=== PATIENT | female | born 1950 | race Caucasian/White ===

== ENCOUNTER 2016-11-02 12:04 | Day surgery (SDC) | payer OTHER ==
[~2016-11-02] VITALS: Ht 165.1 cm; Wt 86.4 kg
[2016-11-02 13:33] LABS: BASOPHILS 0.2 % (0.0-2.0); EOSINOPHILS 1.4 % (0-7); HEMATOCRIT 40.5 % (36.0-48.0); HEMOGLOBIN 13.1 g/dL (12-16); IMMATURE GRANULOCYTES 0.2 % (0-5); LYMPHOCYTES 20.8 % (15-50); MCH 30.8 pg (26.0-34.0); MCHC 32.3 g/dL (31.0-37.0); MCV 95.1 fL (80.0-100.0); MEAN PLATELET VOLUME 9.7 fL (7.4-10.4); MONOCYTES 6.6 % (2-11); NEUTROPHILS 70.8 % (40-80); PLATELET COUNT 177 10x3/uL (130-400); RBC 4.26 10x6/uL (4.00-5.40); RDW 13.1 % (11.5-14.5); WBC 5.6 10x3/uL (4.8-10.8)
[2016-11-02] MEDS ORDERED: ELAVIL25 MG PO (13:40)
[2016-11-02] MEDS ORDERED: PROZAC40 MG PO (13:40)
[2016-11-02 13:42] LABS: CALC OSMOLALITY 281 mosm/kg (275-300); CALCIUM 8.8 mg/dL (8.5-10.1); CARBON DIOXIDE 28.4 mmol/L (21.0-32.0); CHLORIDE - SERUM 104 mmol/L (98-107); CREATININE - SERUM 0.8 mg/dL (0.6-1.3); GLUCOSE 99 mg/dL (74-106); POTASSIUM - SERUM 3.6 mmol/L (3.5-5.1); SODIUM 142 mmol/L (136-145); UREA NITROGEN 9 mg/dL (7-18); eGFR NON AFRICAN AMERICAN 76 mL/min (90-120)
[2016-11-02 13:47] VITALS: BP 150/75; Ht 165.1 cm; Wt 86.4 kg
--- NOTE | 2016-11-02 17:51 | NUR ---
1640- PT UP OOB TO BR, VOIDED WITHOUT DIFFICULTY. IV D/C'D, PT TOLERATED. CATHETER INTACT. 1650- DISCHARGE INSTRUCTIONS COMPLETED, PT VERBALIZED UNDERSTANDING. PAPERWORK SIGNED 1655- PT DISCHARGED VIA WHEELCHAIR WITH .
--- NOTE | 2016-11-07 10:50 | OP ---
PATIENT NAME: ELENA RATLIFF MEDICAL RECORD: [id number] :54 LOCATION:D.OPS ADMISSION DATE: SURGEON: JESUS BARROS DO DATE OF OPERATION: 11/02/2016 PROCEDURE: Colonoscopy. SCOPE: Olympus video pediatric colonoscope. MEDICATIONS: Propofol 250 mg IV per anesthesia. INDICATION: History of colon polyps. FINDINGS: Informed consent was given. The patient was made comfortable with the above medication. After reaching an adequate level of sedation by slow IV push, the patient was placed on her left side. A digital rectal examination was performed and was within normal liquids. Sphincter tone was adequate. The pediatric Olympus colonoscope was then inserted under direct visualization through the rectum and easily passed to the cecum, evidenced by the appendiceal orifice and ileocecal valve. The scope was then slowly withdrawn while examining the mucosa. There were no abnormalities on this examination in any segments of the colon. Retroflexion was performed in the rectum and there were no abnormal findings. The scope was withdrawn from the patient. The patient tolerated the procedure well and there were no complications. Withdrawal time was 11 minutes total. ESTIMATED BLOOD LOSS: Zero. IMPRESSION: 1. Normal colonoscopy. 2. Clinical symptoms of pelvic floor dysfunction as discussed prior to the procedure with occasional fecal and urinary incontinence. PLAN AND RECOMMENDATIONS: 1. Discharge home when recovery parameters are met. 2. Recommend urological evaluation regarding the urinary incontinence. 3. If workup for pelvic floor dysfunction regarding colon is considered, the patient will need to be referred for anorectal manometry. 4. Colonoscopy recall in 7 years. TRANSINT:[id number] Voice Confirmation ID: [id number] DOCUMENT ID: [id number] JESUS BARROS DO at 1050 CC: [id number] DICTATION DATE: 11/02/16 1600 MACHINE II TRIMMER: 11/02/16 1840 [facility] 11/02/16 [place] [id number]
== END 2016-11-02 16:55 | disposition home or self-care (01) ==
LOC: D.OPS 12:04
PROVIDERS: Anesthesiology
DX: Z86.010 Personal history of colon polyps (principal); K21.9 Gastro-esophageal reflux disease without esophagitis